=== PATIENT | female | born 1970 | race Caucasian/White ===

== ENCOUNTER 2019-01-04 08:11 | Inpatient (IN) | payer MEDICARE, OTHER ==
[2019-01-04] MEDS ORDERED: LIDOCAINE HCL 2% PF 100MG/5ML VIAL IJ ONE (08:48)
[2019-01-04] MEDS ORDERED: LACTATED RINGERS 1,000 ML IV.SOLN IV ONE ×2 (08:48)
[2019-01-04] MEDS ORDERED: LIDOCAINE HCL 1% PF 300MG/30ML VIAL ONE (08:48)
[2019-01-04] MEDS ORDERED: SODIUM CHLORIDE IRRIG SOLUTION 3,000 ML IRRIG.SOLN IR ONE (08:48)
[2019-01-04] MEDS ORDERED: GLYCOPYRROLATE 0.2 MG/1 ML 1 ML ONE (08:48)
[2019-01-04] MEDS ORDERED: ONDANSETRON HCL/PF 4 MG/ 2ML VIAL ONE (08:48)
[2019-01-04] MEDS ORDERED: ceFAZolin SODIUM 1 GM VIAL ONE (08:48)
[2019-01-04] MEDS ORDERED: ROCURONIUM BROMIDE 10 MG/ML 5ML VIAL ONE (08:48)
[2019-01-04] MEDS ORDERED: BUPIV. HCL 0.25% (2.5MG/ML)/EPI. (1:200,000) PF 10 ML VIAL IM ONE (08:48)
[2019-01-04] MEDS ORDERED: ESMOLOL HCL 100 MG/10 ML IV ONE (08:48)
[2019-01-04] MEDS ORDERED: MIDAZOLAM HCL 2 MG/2 ML VIAL ONE (08:48)
[2019-01-04] MEDS ORDERED: SUGAMMADEX SODIUM 200 MG/2 ML VIAL IV ONE (08:48)
[2019-01-04] MEDS ORDERED: PROPOFOL 200 MG/20 ML VIAL IV ONE (08:48)
[2019-01-04] MEDS ORDERED: SCOPOLAMINE HYDROBROMIDE 1.5MG/72HR PATCH TD ONE (08:48)
[2019-01-04] MEDS ORDERED: DEXAMETHASONE SODIUM PHOSPHATE 10 MG/ML VIAL ONE (08:48)
[2019-01-04] MEDS ORDERED: FAMOTIDINE 20 MG/2 ML VIAL IV ONE (08:48)
[2019-01-04] MEDS ORDERED: LORazepam 2 MG/ML VIAL ONE (10:09)
[2019-01-04] MEDS ORDERED: fentaNYL CITRATE/PF 100 MCG/2 ML INJ. ONE (12:37)
[2019-01-04] MEDS ORDERED: IPRATROPIUM/ALBUTEROL SULFATE 3 ML AMPUL.NEB NEB PRN (13:12)
[2019-01-04 13:34] VITALS: BMI 57.7
--- NOTE | 2019-01-04 13:42 | History and Physical Report ---
History of Present Illnes - History of Present Illness Reason for Visit: S/P LAPAROSCOPIC VERTICAL SLEEVE GASTRECTOMY History of Present Illness: Patient is a 48-year-old female who has tried multiple diets and exercise programs with no success. She has always struggled with her weight > 30 years. Patient and surgeon decided to proceed with gastric sleeve procedure. Procedure went well-Patient has been on a liquid diet prior to surgery so she is a risk of dehydration s/p surgery. She will be admitted for IV hydration to help hydrate patient until he is able to tolerate a sufficient oral intake, will treat pain with IV medication until patient is able to tolerate oral meds, IV antiemetics to help reduce episodes of nausea and/or vomiting. Patient will be monitored closely using telemetry s/p surgery d/t HEATHER. Will encourage incentive spirometer for morbid obesity and HEATHER. Will also monitor blood sugars closely due to low caloric intake. Patient also has a blood clotting disorder in which she has been on warfarin; she has been transitioned to Lovenox 100 mg per her PCP and will co ntinue after surgery. Patient appears very uncomfortable s/p surgery. - Past Medical History Cardiac: HTN, Hyperlipidemia Pulmonary: Asthma, Pulmonary embolus, Sleep Apnea (ORAL APPLIANCE) Heme/Onc: Other (Prothrombin mutation, Protein deficiency) Psych: Anxiety, Depression Musculoskeletal: Chronic low back pain, Osteoarthritis Rheumatologic: Fibromyalgia Endocrine: Diabetes, Hypothyroidism, obesity Grav: 0 Para: 0 - Past Surgical History Past Surgical History: Cholecystectomy (1997), Other (D&C 2007) - Past Family History Mother Family History: Hypertension Father Family History: Hypertension - Past Social History Smoke: No Alcohol: Rare (1-2/month) Drugs: None Lives: With Family Domestic Violence: Negative - Health Maintenance Health Maintenance: Cholesterol, Mammogram Influenza Vaccine: No Pneumonia Vaccine: No Resuscitation Status: Resusciation Status Resuscitation Status Full Code Review of Systems - Review of Systems Constitutional: Weakness Eyes: negative: conjunctivae inflammation, eyelid inflammation ENT: negative: Throat Pain Respiratory: SOB with Excertion Cardiovascular: negative: Chest Pain Gastrointestinal: Nausea, Abdominal Pain. negative: Vomiting Genitourinary: negative: Dysuria Musculoskeletal: Back Pain (chronic) Skin: Rash (skin irritation under pannus) Neurological: Weakness - Medications/Allergies Allergies/Adverse Reactions: Allergies Allergy/AdvReac Type Severity Reaction Status Date / Time codeine Allergy Verified 01/04/19 13:02 Sulfa (Sulfonamide Allergy Verified 01/04/19 13:02 Antibiotics) Home Medications: Home Medications Enoxaparin Sodium [Lovenox] 150 mg SQ BID 01/04/19 Gabapentin [Neurontin] 1,200 mg PO HS 01/04/19 Gabapentin [Neurontin] 600 mg PO BID 01/04/19 Levothyroxine Sodium [Synthroid] 75 mcg PO 0700 01/04/19 Lisinopril [Prinivil] 10 mg PO QD 01/04/19 Lovastatin 20 mg PO DAILY 01/04/19 Metformin HCl 1,000 mg PO BID 01/04/19 Morphine Sulfate/Naltrexone [Embeda ER 80-3.2 mg Capsule] 1 each PO BID 01/04/19 Multivit-Min/Iron/Folic/Lutein [Multivitamin Women 50 Plus Tab] 1 tab PO DAILY 01/04/19 Omeprazole 20 mg PO DAILY 01/04/19 Oxybutynin Chloride [Ditropan] 10 mg PO DAILY 01/04/19 Promethazine HCl [Phenergan] 25 mg PO Q6 PRN 01/04/19 Tizanidine HCl 4 mg PO DAILY 01/04/19 Venlafaxine HCl [Effexor] 150 mg PO DAILY 01/04/19 Warfarin Sodium 0.5 mg PO [id number] 01/04/19 Warfarin Sodium 10 mg PO [id number] 01/04/19 Warfarin Sodium 10 mg PO [id number] 01/04/19 Warfarin Sodium 12 mg PO [id number] 01/04/19 Current Inpatient Medications: Current Inpatient Medications Acetaminophen (Ofirmev) 1,000 mg IV Q6H PRN PRN Reason: For Mild Breakthrough Pain Stop: 01/08/19 13:11 Hydrocodone Bitart/Acetaminophen (Hycet 7.5-325mg/15 Ml Ud Cup) 15 ml PO Q4 PRN PRN Reason: Mild Pain (Score 1-4) Stop: 01/08/19 13:11 Albuterol/Ipratropium (Duoneb) 3 ml NEB Q4 PRN PRN Reason: Wheezing Stop: 02/03/19 13:11 Enoxaparin Sodium (Lovenox) 100 mg SQ DAILY [facility] Stop: 01/19/19 12:59 Famotidine (Pepcid) 20 mg IVP BID [facility] Stop: 01/08/19 20:59 Cefazolin Sodium 1 gm/ Sodium (Chloride) 50 mls @ 100 mls/hr IV Q8H [facility] Stop: 01/05/19 02:59 Sodium Chloride (Normal Saline) 1,000 mls @ 150 mls/hr IV Q8H [facility] Stop: 02/03/19 13:14 Promethazine HCl 25 mg/ Sodium (Chloride) 51 mls @ 200 mls/hr IV Q6 PRN PRN Reason: Nausea / Vomiting Stop: 01/08/19 13:11 Miscellaneous (Chem Sticks) 1 each ACHS [facility] Stop: 02/03/19 16:59 Morphine Sulfate () 2 mg IV Q2H PRN PRN Reason: SEVERE PAIN 8-10 Stop: 01/05/19 13:11 Ondansetron HCl (Zofran) 4 mg IVP Q6H PRN PRN Reason: Nausea / Vomiting Stop: 01/08/19 13:11 Exam - Exam Vital Signs: Vital Signs (72 hours) 01/04/19 01/04/19 13:02 13:18 Temperature 97.6 F Pulse Rate [ 106 H Left Pulse ox] Respiratory 18 Rate Blood Pressure 122/63 [Left Arm] O2 Sat by Pulse 95 95 Oximetry General: Alert, Oriented to Person, Oriented to Place, Cooperative (still drowsy from anesthesia), Morbidly Obese HEENT: Atraumatic, PERRLA, Mouth Mucous membr. moist/[place] Neck: Normal Range of Motion Carotids: no bruit Lungs: Clear to auscultation, Normal air movement Cardiovascular: Regular rate, Normal S1, Normal S2, Murmur Heart Murmur Grade: III Peripheral Edema: None Peripheral Pulses: 2+ Abdomen: Soft, Decreased Bowel Sounds Integumentary: Warm, Dry, Pale, Other (Incisions intact x 5 without redness/erythema/drainage: Skin adhesive intact) Extremities: No edema, Normal pulses, No tenderness/swelling Neurological: Normal speech, Strength Equal Bilat, Generalized Weakness, Other (uses walker) Psych/Mental Status: Mental status NL - Laboratory Results Laboratory Results: Laboratory Results 01/04/19 10:00 PT 13.7 H INR 1.32 H APTT 37.2 Assessment/Plan - Assessment/Plan (1) S/P laparoscopic sleeve gastrectomy Status: Acute Current Visit: Yes Plan: Plan to admit for IV hydration, IV pain meds, and IV antiemetics. Lovenox and SCDs to help prevent DVTs, IS and frequent ambulation will be implemented. Start ice chips and advance diet as tolerated. IV pepcid BID (2) Morbid obesity due to excess calories Status: Acute Current Visit: Yes Plan: Patient is s/p gastric sleeve. We will assist patient with implementing gastric sleeve diet protocol starting with ice chips and clear liquids and advancing as tolerated (3) Type 2 diabetes mellitus Status: Acute Current Visit: Yes Qualifiers: Diabetes mellitus jail insulin use: without terminal system operator use Diabetes mellitus complication status: with hyperglycemia Qualified Code(s): E11.65 - Type 2 diabetes mellitus with hyperglycemia Plan: Will monitor blood sugars ac & hs; may implement SSI if needed (4) Hypertension Status: Acute Current Visit: Yes Qualifiers: Hypertension type: essential hypertension Qualified Code(s): I10 - Essential (primary) hypertension Plan: Will monitor blood pressure every 4 hours and prn; may implement blood pressure medications as needed (5) Prothrombin mutation Status: Acute Current Visit: Yes Plan: Patient has transitioned from warfarin to lovenox; she was instructed and has started lovenox as directed by PCP on 12/30/18 and will continue with Lovenox 150 mg bid (6) Obstructive sleep apnea Status: Acute Current Visit: Yes Plan: Patient is to use sleep appliance while hospitalized; incentive spirometer every hour while awake (7) Asthma Status: Acute Current Visit: Yes Plan: Duonebs ordered prn (8) History of pulmonary embolus (PE) Status: Acute Current Visit: Yes Plan: Will continue on Lovenox 150 mg bid while hospitalized per PCP order (9) Nausea and vomiting Status: Acute Current Visit: Yes Plan: Pepcid IV BID ordered; IV antiemetics, and IVF VTE Assessment - RISK FACTOR SCORE VTE RISK FACTOR SCORES: AGE 40-60 YEARS, OBESITY, MAJOR SURGERY/ANESTHESIA TIME > 1 HOUR, DOCUMENTED HX OF VTE, HYPERCOAGULABLE SYNDROME - RISK VTE VERY HIGH RISK: SCORE OF 5+ (RISK PROXIMAL DVT 10-20%+) PROPHYLAXIS NEEDED (Lovenox 150 mg bid, SCDs while in bed, frequent ambulation, Incentive spirometer)
[2019-01-04] MEDS: ACETAMINOPHEN 1,000 MG/100 ML INJ IV PRN ×2 (14:15→19:38)
[2019-01-04] MEDS: ONDANSETRON HCL/PF 4 MG/ 2ML VIAL IVP PRN ×2 (14:16→19:35)
[2019-01-04] MEDS: 0.9 % SODIUM CHLORIDE 1,000 ML IV SCH ×2 (14:24→21:15)
[2019-01-04] MEDS: PROMETHAZINE HCL 25 MG in 0.9 % SODIUM CHLORIDE 50 ML IV PRN ×2 (15:25→23:16)
[2019-01-04] MEDS: ceFAZolin SODIUM 1 GM in 0.9 % SODIUM CHLORIDE 50 ML IV SCH (18:43)
[2019-01-04] MEDS: MORPHINE SULFATE 2 MG/ML VIAL IV PRN ×2 (18:45→21:12)
[2019-01-04] MEDS: FAMOTIDINE 20 MG/2 ML VIAL IVP SCH (20:22)
[2019-01-04] MEDS: HYDROcodone-ACETAMIN 7.5-325/15ML SOLN UD CUP PO PRN (22:25)
[2019-01-05] MEDS: MORPHINE SULFATE 2 MG/ML VIAL IV PRN ×4 (00:05→10:21)
[2019-01-05] MEDS: ceFAZolin SODIUM 1 GM in 0.9 % SODIUM CHLORIDE 50 ML IV SCH (01:57)
[2019-01-05] MEDS ORDERED: METOPROLOL TARTRATE 50 MG TABLET PO ONE (02:13)
[2019-01-05] MEDS: HYDROcodone-ACETAMIN 7.5-325/15ML SOLN UD CUP PO PRN ×5 (02:41→22:02)
[2019-01-05] MEDS ORDERED: 0.9 % SODIUM CHLORIDE 500 ML IV ONE (04:20)
[2019-01-05] MEDS: 0.9 % SODIUM CHLORIDE 1,000 ML IV SCH ×3 (05:37→21:54)
--- NOTE | 2019-01-05 06:35 | Inpatient Progress Note ---
Subjective - Required Recertification Statement I anticipate X number of days because-include discharge plan: Unknown - Review of Systems Events since last encounter: Per RN "At approximately 0400 NORA Peace was helping the patient to the restroom and had her on the toilet when she yelled this nurses name to come to the room. Upon entering the room this nurse noted that the patient was on the toilet and breathing but was unresponsive to stimuli. Isidra FISHER entered the room and this nurse told her to call the ED for Santos FISHER and Urszula FRAZIER. This nurse went to grab oxygen tubing and when walking back to the room the ED staff was also coming down the hallway. The staff was able to get the patient to become alert and transferred back to her bed. Urszula FRAZIER ordered labs, EKG, and a fluid bolus to be completed, orders were carried out. Vitals were completed and as follows T98.5, HR 108, R 20, BP 105/71, and O2 sat 97% on 3L. NORA Peace helped patient with jacky care due to patient being incontinent. Patient is currently resting in bed call light within reach, denies dizziness at this time". 06:00- patient was treated with a 500 cc bolus of NS; Hgb down from 12.1 pre surgery to 8.3; we will set up to transfuse blood; discussed with patient; she is in agreement. Patient was aware of risk with Lovenox therapy. She is resting comfortably; VSS; Blood sugar this morning is 339- will implement SSI. She states that she is feeling much better. Will continue with SCDs while in bed d/t risk of blood clots. She will be encouraged to use incentive spirometer. 06:[address] Frausto (Surgeon) and we will hold lovenox today; give 1 unit of PRBCs and check Hgb every 8 hours. Patient is too walk and SCDs will remain on while in bed or chair General: Fatigue HEENT: Denies: Head Aches Pulmonary: Dyspnea (with syncopal episode) Cardiovascular: Light Headedness Gastrointestinal: Nausea, Abdominal Pain. Denies: Vomiting Genitourinary: Denies: Dysuria Musculoskeletal: Back Pain Neurological: Weakness Objective - Exam Vitals and I&O: Vital Signs Temp 96.8 F L 01/05/19 05:53 Pulse 111 H 11/08/19 05:53 Resp 20 01/05/19 05:54 BP 132/71 01/05/19 05:53 Pulse Ox 100 01/05/19 05:54 Intake & Output 01/04/19 01/04/19 01/05/19 11:59 23:59 11:59 Intake Total 120 240 Output Total 1200 Balance -1080 240 Weight 167.285 kg Intake: Oral 120 240 Output: Urine 1200 Other: Voiding Method Toilet Toilet # Voids 0 1 # Bowel Movements 0 General: Alert, Oriented to Person, Oriented to Place, Cooperative, Other (Had a syncopal episode where she was pale, diaphoretic, tachypnea), Morbidly Obese HEENT: PERRLA, Mouth Mucous membr. moist/[place], Nose Mucous membr. moist/[place] Neck: No JVD, +2 carotid pulse wo bruit Lungs: Clear to auscultation, Normal air movement Cardiovascular: Normal S1, Normal S2, Tachycardia Abdomen: Soft, Decreased Bowel Sounds Extremities: Normal pulses, No tenderness/swelling Skin: Pale (Cool, [place]) Neurological: Normal speech, Strength Equal Bilat, Generalized Weakness Psych/Mental Status: Mental status NL, Mood NL - Results Results: Laboratory Results PT 13.7 Seconds (8.8-11.9) H 01/04/19 10:00 INR 1.32 (0.80-1.10) H 01/04/19 10:00 APTT 37.2 Seconds (24.7-37.8) 01/04/19 10:00 Assessment/Plan - Assessment/Plan (1) S/P laparoscopic sleeve gastrectomy Status: Acute Current Visit: Yes Assessment: Patient experiencing nausea; has been ambulating, wearing SCDs while in bed, using incentive spirometry, patient receiving lovenox to prevent DVT Plan: Patient getting IV fluids for hydration, IV pain meds, and IV antiemetics. Lovenox and SCDs to help prevent DVTs, IS and frequent ambulation will be implemented. Patient eating ice chips and will advance diet to clear liquids as tolerated once nausea and vomiting is controlled. Will continue with Pepcid IV BID for GI upset (2) Morbid obesity due to excess calories Status: Acute Current Visit: Yes Assessment: Patient tolerating ice chips and water; some nausea Plan: Will advance diet to clear liquids today (3) Type 2 diabetes mellitus Status: Acute Current Visit: Yes Qualifiers: Diabetes mellitus long term care administrator insulin use: without jail use Diabetes mellitus complication status: with hyperglycemia Qualified Code(s): E11.65 - Type 2 diabetes mellitus with hyperglycemia Assessment: Blood sugar this morning 334 Plan: Will implement sliding scale insulin (4) Hypertension Status: Acute Current Visit: Yes Qualifiers: Hypertension type: essential hypertension Qualified Code(s): I10 - Essential (primary) hypertension Assessment: Blood pressures <110 systolic Plan: Will hold blood pressure meds due to hypotension (5) Prothrombin mutation Status: Acute Current Visit: Yes Assessment: Potential GI Bleed- syncopal episode around 4 a.m. Plan: Will give PRBCs this morning (6) Obstructive sleep apnea Status: Acute Current Visit: Yes Assessment: Stable Plan: Continue to use airway device (7) Asthma Status: Acute Current Visit: Yes Assessment: No resp. distress; LCTA Plan: Will continue with same plan of care (8) History of pulmonary embolus (PE) Status: Acute Current Visit: Yes Assessment: Hgb down from 12.1 to 8.8 Plan: Will hold lovenox today per Dr. Frausto and give blood (9) Nausea and vomiting Status: Acute Current Visit: Yes Assessment: Patient having nausea; able to sip on fluids Plan: Will continue with Zofran and phenergan
[2019-01-05 06:49] LABS: BASOPHILS % 0.6 % (0.0-1.5); NEUTROPHILS # 18.7 # k/uL (1.4-7.7); eGFR (Non-African) > 60
[2019-01-05] MEDS: INSULIN REGULAR, HUMAN 100 UNIT/ML 10ML VIAL SQ SCH ×4 (07:42→22:01)
[2019-01-05] MEDS: FAMOTIDINE 20 MG/2 ML VIAL IVP SCH ×2 (08:30→19:58)
[2019-01-05] MEDS ORDERED: ENOXAPARIN SODIUM 80 MG/0.8 ML DISP.SYRIN SQ SCH (09:00)
[2019-01-05] MEDS ORDERED: ENOXAPARIN SODIUM 100 MG/ML DISP.SYRIN SQ SCH (13:00)
[2019-01-05] MEDS ORDERED: ENOXAPARIN SODIUM 40 MG/0.4 ML DISP.SYRIN SQ SCH (13:28)
[2019-01-05] MEDS: ONDANSETRON HCL/PF 4 MG/ 2ML VIAL IVP PRN ×2 (14:52→21:18)
[2019-01-05] MEDS: ACETAMINOPHEN 1,000 MG/100 ML INJ IV PRN (15:45)
[2019-01-05] MEDS: PROMETHAZINE HCL 25 MG in 0.9 % SODIUM CHLORIDE 50 ML IV PRN ×2 (16:09→23:58)
[2019-01-06] MEDS: ACETAMINOPHEN 1,000 MG/100 ML INJ IV PRN (00:21)
[2019-01-06] MEDS: ONDANSETRON HCL/PF 4 MG/ 2ML VIAL IVP PRN ×3 (03:08→19:41)
[2019-01-06] MEDS: HYDROcodone-ACETAMIN 7.5-325/15ML SOLN UD CUP PO PRN ×6 (03:08→23:31)
[2019-01-06] MEDS ORDERED: MORPHINE SULFATE 2 MG/ML VIAL IV ONE (04:04)
--- NOTE | 2019-01-06 07:23 | Inpatient Progress Note ---
Subjective - Required Recertification Statement I anticipate X number of days because-include discharge plan: Unknown - Review of Systems Events since last encounter: Patient received 2 units of blood on 12/05/18 (1 unit in the tube mill operator after syncopal episode), due to drop in hemoglobin; she was feeling much better after 1st unit; was starting to ambulate short distances; would have episodes of tachycardia but would subside with rest. Later yesterday evening patient was f eeling fatigued, tachycardic, shortness of breath with activity; decision made to give 2nd unit. General: Fatigue HEENT: Denies: Dysphasia Pulmonary: Dyspnea Cardiovascular: Light Headedness Gastrointestinal: Nausea, Abdominal Pain (mild). Denies: Vomiting Genitourinary: Incontinence Musculoskeletal: Back Pain Neurological: Weakness Objective - Exam Vitals and I&O: Vital Signs Temp 97.4 F L 01/06/19 06:00 Pulse 117 H 01/06/19 06:00 Resp 18 01/06/19 06:00 BP 137/73 01/06/19 06:00 Pulse Ox 99 01/06/19 06:00 Intake & Output 01/05/19 01/05/19 01/06/19 11:59 23:59 11:59 Intake Total 303 220 Output Total 0 400 Balance 303 -180 Intake: IV 3 Left AC 3 Oral 300 220 Output: Urine 0 400 Other: Voiding Method Toilet Toilet Toilet # Voids 1 1 2 General: Alert, Oriented to Person, Oriented to Place, Oriented to Time, Cooperative, Mild distress HEENT: Atraumatic, PERRLA Neck: Supple Lungs: Clear to auscultation, Normal air movement Cardiovascular: Tachycardia Abdomen: Normal bowel sounds, Soft Extremities: No edema, Normal pulses, No tenderness/swelling Skin: Warm, Dry, Pale, Other (incisions without redness/erythema/drainage; skin adhesive intact) Neurological: Normal speech, Strength Equal Bilat, Normal tone, Sensation intact Psych/Mental Status: Mental status NL, Mood NL, Appropriate Affect, Intact Judgment - Results Results: Laboratory Results WBC 17.00 K/ul (4.00-12.00) H 01/05/19 14:00 RBC 3.45 M/ul (3.90-5.20) L 01/05/19 14:00 Hgb 9.2 g/dL (11.5-16.0) L 01/05/19 14:00 Hct 28.4 % (34.5-46.5) L 01/05/19 14:00 MCV 82.0 fl (80.0-100.0) 01/05/19 14:00 MCH 26.7 pg (28.0-34.0) L 01/05/19 14:00 MCHC 32.5 g/dL (30.0-36.0) 01/05/19 14:00 RDW 16.3 % (11.3-14.3) H 01/05/19 14:00 Plt Count 198 K/mm3 (130-400) 01/05/19 14:00 Neut % (Auto) 83.0 % (39.0-79.0) H 01/05/19 04:19 Lymph % (Auto) 10.0 % (16.0-50.0) L 01/05/19 04:19 [place] % (Auto) 5.2 % (0.0-11.0) 01/05/19 04:19 Eos % (Auto) 1.2 % (0.0-6.8) 01/05/19 04:19 Baso % (Auto) 0.6 % (0.0-1.5) 01/05/19 04:19 Neut # (Auto) 18.7 # k/uL (1.4-7.7) H 01/05/19 04:19 Lymph # (Auto) 2.3 # k/uL (0.6-4.0) 01/05/19 04:19 [place] # (Auto) 1.2 # k/uL (0.0-0.9) H 01/05/19 04:19 Eos # (Auto) 0.3 # k/uL (0.0-0.6) 01/05/19 04:19 Baso # (Auto) 0.1 # k/uL (0.0-0.5) 01/05/19 04:19 PT 13.7 Seconds (8.8-11.9) H 01/04/19 10:00 INR 1.32 (0.80-1.10) H 01/04/19 10:00 APTT 37.2 Seconds (24.7-37.8) 01/04/19 10:00 Sodium 137 mmol/L (137-145) 01/05/19 04:19 Potassium 3.9 mmol/L (3.5-5.1) 01/05/19 04:19 Chloride 108 mmol/L (98-107) H 01/05/19 04:19 Carbon Dioxide 11 mmol/L (22-30) L 01/05/19 04:19 Anion Gap 21.9 01/05/19 04:19 BUN 11 mg/dL (7-17) 01/05/19 04:19 Creatinine 1.14 mg/dL (0.52-1.04) H 01/05/19 04:19 Estimated Creat Clear 183 01/05/19 04:19 Est GFR ( Amer) > 60 (60-) 01/05/19 04:19 Est GFR (Non-Af Amer) > 60 (60-) 01/05/19 04:19 Glucose 339 mg/dL (74-106) H 01/05/19 04:19 Calcium 7.8 mg/dL (8.4-10.2) L 01/05/19 04:19 Total Bilirubin 0.4 mg/dL (0.2-1.3) 01/05/19 04:19 AST 35 U/L (15-46) 01/05/19 04:19 ALT 40 U/L (0-35) H 01/05/19 04:19 Alkaline Phosphatase 75 U/L (38-126) 01/05/19 04:19 Total Protein 5.9 g/dL (6.3-8.2) L 01/05/19 04:19 Albumin 3.2 g/dL (3.5-5.0) L 01/05/19 04:19 Assessment/Plan - Assessment/Plan (1) S/P laparoscopic sleeve gastrectomy Status: Acute Assessment: Patient experiencing nausea; has been ambulating, wearing SCDs while in bed, using incentive spirometry Plan: Patient getting IV fluids for hydration, IV pain meds, and IV antiemetics. SCDs to help prevent DVTs, IS and frequent ambulation will be implemented. Patient eating ice chips and will advance diet to clear liquids as tolerated once nausea and vomiting is controlled. Will continue with Pepcid IV BID for GI upset (2) Morbid obesity due to excess calories Status: Acute Assessment: Patient tolerating ice chips and water; some nausea Plan: Will advance diet to clear liquids today (3) Type 2 diabetes mellitus Status: Acute Qualifiers: Diabetes mellitus auto self service station attendant insulin use: without auto self service station attendant use Diabetes mellitus complication status: with hyperglycemia Qualified Code(s): E11.65 - Type 2 diabetes mellitus with hyperglycemia Assessment: Blood sugar this morning 200 Plan: Patient on sliding scale (4) Hypertension Status: Acute Qualifiers: Hypertension type: essential hypertension Qualified Code(s): I10 - Essential (primary) hypertension Assessment: Blood pressures >128 systolic Plan: Will hold blood pressure meds due to hypotension (5) Prothrombin mutation Status: Acute Plan: 2 units of PRBCs given (6) Obstructive sleep apnea Status: Acute Assessment: Stable Plan: Continue to use airway device (7) Asthma Status: Acute Assessment: No resp. distress; LCTA Plan: Will continue with same plan of care (8) History of pulmonary embolus (PE) Status: Acute (9) Nausea and vomiting Status: Acute Assessment: Patient having nausea; able to sip on fluids Plan: Will continue with Zofran and phenergan
[2019-01-06] MEDS: INSULIN REGULAR, HUMAN 100 UNIT/ML 10ML VIAL SQ SCH ×4 (07:29→20:55)
[2019-01-06] MEDS: PROMETHAZINE HCL 25 MG in 0.9 % SODIUM CHLORIDE 50 ML IV PRN (07:37)
[2019-01-06] MEDS: FAMOTIDINE 20 MG/2 ML VIAL IVP SCH ×2 (08:13→20:55)
[2019-01-06] MEDS ORDERED: MAG HYDROX/ALUMINUM HYD/SIMETH 30 ML UDC PO ONE (20:55)
[2019-01-06] MEDS: MAG HYDROX/ALUMINUM HYD/SIMETH 30 ML UDC PO PRN (21:02)
[2019-01-07] MEDS: HYDROcodone-ACETAMIN 7.5-325/15ML SOLN UD CUP PO PRN ×5 (03:26→21:45)
[2019-01-07 05:21] LABS: eGFR (Non-African) > 60
[2019-01-07] MEDS: MAG HYDROX/ALUMINUM HYD/SIMETH 30 ML UDC PO PRN ×2 (06:55→21:14)
--- NOTE | 2019-01-07 07:08 | Inpatient Progress Note ---
Subjective - Required Recertification Statement I anticipate X number of days because-include discharge plan: Unknown - Review of Systems Events since last encounter: Patient sitting up in bedside chair; she is alert and oriented; VS have been stable; however hemoglobin this morning is 7.5. Patient states that she is feeling better but still very weak and difficult to ambulate long distances. We will transfuse another unit today General: Fatigue HEENT: Denies: Dysphasia Pulmonary: Denies: Dyspnea Cardiovascular: Light Headedness. Denies: Chest Pain, Edema Gastrointestinal: Nausea. Denies: Vomiting, Abdominal Pain Genitourinary: Denies: Dysuria Musculoskeletal: Back Pain Neurological: Weakness Objective - Exam Vitals and I&O: Vital Signs Temp 97.6 F 01/07/19 06:00 Pulse 108 H 01/07/19 06:00 Resp 18 01/07/19 06:00 BP 121/61 01/07/19 06:00 Pulse Ox 97 01/07/19 06:00 Intake & Output 01/06/19 01/06/19 01/07/19 11:59 23:59 11:59 Intake Total 63 430 360 Output Total 675 Balance 63 430 -315 Intake: IV 3 10 Right Hand 3 10 Oral 60 420 360 Output: Urine 675 Other: Voiding Method Toilet Toilet # Voids 2 1 # Bowel Movements 0 0 General: Alert, Oriented to Person, Oriented to Place, Oriented to Time, Cooperative, Mild distress, Morbidly Obese HEENT: Atraumatic, PERRLA, Mouth Mucous membr. moist/[place], Nose Mucous membr. moist/[place] Neck: Supple, +2 carotid pulse wo bruit Lungs: Clear to auscultation, Normal air movement, Speaks full Sentences Cardiovascular: Regular rate, Normal S1, Normal S2 Abdomen: Normal bowel sounds, Soft Extremities: No edema, No tenderness/swelling Skin: Warm, Dry, Pale, Other (incisions without redness; erythema; drainage) - Results Results: Laboratory Results WBC 12.90 K/ul (4.00-12.00) H 01/06/19 18:00 RBC 2.97 M/ul (3.90-5.20) L 01/06/19 18:00 Hgb 7.5 g/dL (11.5-16.0) L 01/07/19 05:00 Hct 23.0 % (34.5-46.5) L 01/07/19 05:00 MCV 82.0 fl (80.0-100.0) 01/06/19 18:00 MCH 26.8 pg (28.0-34.0) L 01/06/19 18:00 MCHC 32.6 g/dL (30.0-36.0) 01/06/19 18:00 RDW 16.1 % (11.3-14.3) H 01/06/19 18:00 Plt Count 355 K/mm3 (130-400) 01/06/19 18:00 Neut % (Auto) 83.0 % (39.0-79.0) H 01/05/19 04:19 Lymph % (Auto) 10.0 % (16.0-50.0) L 01/05/19 04:19 [place] % (Auto) 5.2 % (0.0-11.0) 01/05/19 04:19 Eos % (Auto) 1.2 % (0.0-6.8) 01/05/19 04:19 Baso % (Auto) 0.6 % (0.0-1.5) 01/05/19 04:19 Neut # (Auto) 18.7 # k/uL (1.4-7.7) H 01/05/19 04:19 Lymph # (Auto) 2.3 # k/uL (0.6-4.0) 01/05/19 04:19 [place] # (Auto) 1.2 # k/uL (0.0-0.9) H 01/05/19 04:19 Eos # (Auto) 0.3 # k/uL (0.0-0.6) 01/05/19 04:19 Baso # (Auto) 0.1 # k/uL (0.0-0.5) 01/05/19 04:19 PT 13.7 Seconds (8.8-11.9) H 01/04/19 10:00 INR 1.32 (0.80-1.10) H 01/04/19 10:00 APTT 37.2 Seconds (24.7-37.8) 01/04/19 10:00 Sodium 135 mmol/L (137-145) L 01/07/19 05:00 Potassium 3.5 mmol/L (3.5-5.1) 01/07/19 05:00 Chloride 103 mmol/L (98-107) 01/07/19 05:00 Carbon Dioxide 23 mmol/L (22-30) 01/07/19 05:00 Anion Gap 12.5 01/07/19 05:00 BUN 8 mg/dL (7-17) 01/07/19 05:00 Creatinine 0.52 mg/dL (0.52-1.04) 01/07/19 05:00 Estimated Creat Clear 402 01/07/19 05:00 Est GFR ( Amer) > 60 (60-) 01/07/19 05:00 Est GFR (Non-Af Amer) > 60 (60-) 01/07/19 05:00 Glucose 187 mg/dL (74-106) H 01/07/19 05:00 Calcium 8.3 mg/dL (8.4-10.2) L 01/07/19 05:00 Total Bilirubin 1.0 mg/dL (0.2-1.3) 01/07/19 05:00 AST 32 U/L (15-46) 01/07/19 05:00 ALT 26 U/L (0-35) 01/07/19 05:00 Alkaline Phosphatase 114 U/L (38-126) 01/07/19 05:00 Total Protein 6.3 g/dL (6.3-8.2) 01/07/19 05:00 Albumin 3.1 g/dL (3.5-5.0) L 01/07/19 05:00 Assessment/Plan - Assessment/Plan (1) S/P laparoscopic sleeve gastrectomy Status: Acute Assessment: Patient experiencing nausea; has been ambulating, wearing SCDs while in bed, using incentive spirometry Plan: Patient getting IV fluids for hydration, IV pain meds, and IV antiemetics. SCDs to help prevent DVTs, IS and frequent ambulation will be implemented. Patient eating ice chips and will advance diet to clear liquids as tolerated once nausea and vomiting is controlled. Will continue with Pepcid IV BID for GI upset (2) Morbid obesity due to excess calories Status: Acute Assessment: Patient drinking full liquids Plan: Will continue with full liquids (3) Type 2 diabetes mellitus Status: Acute Qualifiers: Diabetes mellitus custodial insulin use: without custodial use Diabetes mellitus complication status: with hyperglycemia Qualified Code(s): E11.65 - Type 2 diabetes mellitus with hyperglycemia Assessment: Blood sugars within normal limits Plan: Will continue to monitor (4) Hypertension Status: Acute Qualifiers: Hypertension type: essential hypertension Qualified Code(s): I10 - Essential (primary) hypertension Assessment: Blood pressures are stable Plan: Will continue to monitor (5) Prothrombin mutation Status: Acute (6) Obstructive sleep apnea Status: Acute Assessment: stable (7) Asthma Status: Acute (8) History of pulmonary embolus (PE) Status: Acute (9) Nausea and vomiting Status: Acute Assessment: STable
[2019-01-07] MEDS: INSULIN REGULAR, HUMAN 100 UNIT/ML 10ML VIAL SQ SCH ×4 (07:34→21:12)
[2019-01-07] MEDS ORDERED: 0.9 % SODIUM CHLORIDE 500 ML IV ONE ×2 (08:42→15:01)
[2019-01-07] MEDS: FAMOTIDINE 20 MG/2 ML VIAL IVP SCH ×2 (12:11→21:14)
[2019-01-07] MEDS: ONDANSETRON HCL/PF 4 MG/ 2ML VIAL IVP PRN (20:12)
[2019-01-07] MEDS: ACETAMINOPHEN 1,000 MG/100 ML INJ IV PRN (20:16)
[2019-01-08] MEDS: HYDROcodone-ACETAMIN 7.5-325/15ML SOLN UD CUP PO PRN ×2 (05:43→11:39)
[2019-01-08] MEDS: ACETAMINOPHEN 1,000 MG/100 ML INJ IV PRN (05:44)
[2019-01-08 06:55] LABS: OCCULT BLOOD,URINE 2+ (NEGATIVE); PH URINE 5.5 (5.0 - 8.0); UROBILINOGEN URINE 0.2 Eu (0.2-1.0)
--- NOTE | 2019-01-08 07:11 | Discharge Summary ---
Discharge Summary - Discharge [facility] Admission Date: 01/04/19 Discharge Date: 01/08/19 Discharge To: Home History of Present Illness: Patient is a 48-year-old female who has tried multiple diets and exercise programs with no success. She has always struggled with her weight > 30 years. Patient and surgeon decided to proceed with gastric sleeve procedure. Procedure went well-Patient has been on a liquid diet prior to surgery so she is a risk of dehydration s/p surgery. She will be admitted for IV hydration to help hydrate patient until he is able to tolerate a sufficient oral intake, will treat pain with IV medication until patient is able to tolerate oral meds, IV antiemetics to help reduce episodes of nausea and/or vomiting. Patient will be monitored closely using telemetry s/p surgery d/t HEATHER. Will encourage incentive spirometer for morbid obesity and HEATHER. Will also monitor blood sugars closely due to low caloric intake. Patient also has a blood clotting disorder in which she has been on warfarin; she has been transitioned to Lovenox 100 mg per her PCP and will continue after surgery. Patient appears very uncomfortable s/p surgery. Condition at Discharge: Stable Home Medications: Ambulatory Orders Medication Instructions Recorded Enoxaparin Sodium [Lovenox] 150 mg SQ BID 01/04/19 Gabapentin [Neurontin] 1,200 mg PO HS 01/04/19 Gabapentin [Neurontin] 600 mg PO BID 01/04/19 Levothyroxine Sodium [Synthroid] 75 mcg PO 0700 01/04/19 Lisinopril [Prinivil] 10 mg PO QD 01/04/19 Lovastatin 20 mg PO DAILY 01/04/19 Metformin HCl 1,000 mg PO BID 01/04/19 Morphine Sulfate/Naltrexone 1 each PO BID 01/04/19 [Embeda ER 80-3.2 mg Capsule] Multivit-Min/Iron/Folic/Lutein 1 tab PO DAILY 01/04/19 [Multivitamin Women 50 Plus Tab] Omeprazole 20 mg PO DAILY 01/04/19 Oxybutynin Chloride [Ditropan] 10 mg PO DAILY 01/04/19 Promethazine HCl [Phenergan] 25 mg PO Q6 PRN 01/04/19 Tizanidine HCl 4 mg PO DAILY 01/04/19 Venlafaxine HCl [Effexor] 150 mg PO DAILY 11/07/19 Warfarin Sodium 0.5 mg PO [id number] 01/04/19 Warfarin Sodium 10 mg PO [id number] 01/04/19 Warfarin Sodium 10 mg PO [id number] 01/04/19 Warfarin Sodium 12 mg PO [id number] 01/04/19 Consultations this Visit: None Procedures this Visit: Other (S/P LSG) Allergies/Adverse Reactions: Allergies Allergy/AdvReac Type Severity Reaction Status Date / Time codeine Allergy Verified 01/04/19 13:02 Sulfa (Sulfonamide Allergy Verified 01/04/19 13:02 Antibiotics) Discharge Summary: 48 year old female s/p laparoscopic vertical sleeve gastrectomy has some issues with anemia s/p surgery; patient was transitioned from warfarin to Lovenox by PCP prior to surgery. Patient received 2 units of PRBCs during admission. She is feeling much better and feels ready to go home.. She is tolerating sufficient oral intake; she is ambulating with the use of walker; has been using incentive spirometer; pain is controlled; no vomiting; she has support at home with her mom. She has a follow up appt. in 2 days with YAYA for follow up. - Final Diagnosis (1) S/P laparoscopic sleeve gastrectomy Problems: Continue with bariatric sleeve diet- continue on full liquids; protein shake 80- 100 grams protein Right or Left: Right (2) Morbid obesity due to excess calories Problems: Incision without redness or drainage, positive bowel sounds, minimal discomfort, belching and flatus, no extremity pain or edema, LCTA Right or Left: Right (3) Type 2 diabetes mellitus Problems: Continue with home medications; monitor blood sugars closely; keep log and take to follow up appointment Right or Left: Right (4) Hypertension Problems: Stable- continue on home meds; monitor blood pressures; keep log and take to follow up appointment Right or Left: Right (5) Prothrombin mutation Problems: Continue on Lovenox as instructed by PCP Right or Left: Right (6) Obstructive sleep apnea Problems: Stable Right or Left: Right (7) Asthma Problems: Stable; LCTA Right or Left: Right (8) History of pulmonary embolus (PE) Problems: Continue on Lovenox as directed by PCP Right or Left: Right (9) Nausea and vomiting Problems: Stable; script for phenergan sent with patient Right or Left: Right
[2019-01-08] MEDS ORDERED: FAMOTIDINE 20 MG/2 ML VIAL IV ONE (07:50)
[2019-01-08] MEDS: INSULIN REGULAR, HUMAN 100 UNIT/ML 10ML VIAL SQ SCH ×2 (08:00→11:37)
[2019-01-08] MEDS: FAMOTIDINE 20 MG/2 ML VIAL IVP SCH (08:03)
[2019-01-08] MEDS ORDERED: MORPHINE SULFATE 2 MG/ML VIAL ONE (09:27)
[2019-01-08 09:28] VITALS: BP 156/82
[2019-01-08] MEDS ORDERED: MORPHINE SULFATE 2 MG/ML VIAL IV ONE (09:28)
--- NOTE | 2019-01-09 15:27 | Operative Note ---
PROCEDURE DATE: 01/04/2019 PREOPERATIVE DIAGNOSIS: 1. Morbid obesity. 2. Hypertension. 3. Obstructive sleep apnea. 4. Type 2 diabetes. POSTOPERATIVE DIAGNOSIS: 1. Morbid obesity. 2. Hypertension. 3. Obstructive sleep apnea. 4. Type 2 diabetes. PROCEDURES PERFORMED: 1. Laparoscopic vertical sleeve gastrectomy. 2. Upper gastrointestinal endoscopy. SURGEON: Kennedy Frausto M.D. INDICATIONS FOR PROCEDURE: Ms. Jovel is a 48-year-old female who presented with features of morbid obesity. She was noted to have a weight of 381 pounds with a BMI of 61.3 with the above-listed comorbidities. The patient was advised laparoscopic vertical sleeve gastrectomy and possible hiatal hernia repair. The patient showed understanding and agreed to proceed. DESCRIPTION OF PROCEDURE: After explaining to the patient in detail and informed consent was obtained, the patient was identified in the preoperative holding area. The patient was transferred to the operating room and was placed in supine position. Sequential compressive devices were placed for DVT prophylaxis. Preoperative antibiotics were given. After induction of anesthesia, the abdomen was prepped and draped in a sterile fashion. Through a left upper quadrant 1-cm incision, and using Optiview technique, the peritoneal cavity was entered and pneumoperitoneum was created. Thereafter, under direct vision, another 5-mm trocar was placed in the left midabdomen and another 15-mm trocar was placed in the right midabdomen. Through a 1-cm incision in the right subcostal region, another 5-mm trocar was placed. Through a 1-cm incision in the epigastrium, a Shannan retractor was introduced and the left lobe of the liver was retracted. On initial inspection, the patient was noted to have no evidence of hiatal hernia. I took down the gastroepiploic vessels using a LigaSure. This was continued superiorly. The short gastric vessels were taken down. The gastrophrenic ligament was divided and the Angle of His was mobilized. The posterior attachments of the stomach on the pancreas were released. Distally, the gastroepiploic vessels were taken down up to about 4 cm proximal to the pylorus. At this point, a #38 Arabic Hurst Bougie was introduced into the stomach and was placed along the lesser curve. The stomach was then divided in a vertical fashion with multiple Endo ETTA Covidien Black Load Staplers. The first firing was directed outwards towards the greater curvature. Subsequent firings were directed towards the Angle of His to create a loose sleeve around the #38 Arabic bougie. The bougie was then removed and an upper GI endoscopy was performed at this point. The scope was introduced into the esophagus and was gradually advanced into the stomach. The GE junction appeared normal. The sleeve size appeared normal. No evidence of any active bleeding was noted. The stomach was insufflated with air and irrigation of fluid along the staple line revealed no evidence of air leak. The stomach was then suctioned out and the scope was removed. Absolute hemostasis was ensured. Thorough saline irrigation was given. The Shannan retractor was removed. Approximately 10 mL of a lidocaine- Marcaine mix was instilled under the left hemidiaphragm. The sleeve gastrectomy specimen was removed. The abdomen was then deflated. The incisions were closed with 4-0 Monocryl. Dermabond was applied. Approximately 10 mL of a lidocaine- Marcaine mix was injected into all the incisions. The patient was awakened from anesthesia and was transferred to the recovery room in stable condition. The patient had minimal oozing from the staple line, for which two endoclips were placed on the staple line. ESTIMATED BLOOD LOSS: Approximately 20 mL. CONDITION OF THE PATIENT: Stable. FLUIDS GIVEN: Per Anesthesia note. SPECIMEN(S) SENT: Sleeve gastrectomy specimen. COMPLICATIONS: None. ANESTHESIA: General. Kennedy Frausto M.D. PAULINO/yani (Please copy [facility] provider when applicable) Job #[id number] JOSE FRANCISCO
== END 2019-01-08 13:00 | disposition home or self-care (01) | DRG 620 ==
LOC: OPSURG 08:11 → SOUTH 12:53
PROVIDERS: ADMIT Nurse Practitioner Family; ATTEND Nurse Practitioner Family
PROC: 0DB64Z3 Excision of Stomach, Percutaneous Endoscopic Approach, Vertical (ICD-10-PCS; principal; 2019-01-04)
PROC: 30233N1 Transfusion of Nonautologous Red Blood Cells into Peripheral Vein, Percutaneous Approach (ICD-10-PCS; 2019-01-05)
DX: E66.01 Morbid (severe) obesity due to excess calories (principal); D68.52 Prothrombin gene mutation; G47.33 Obstructive sleep apnea (adult) (pediatric); I10 Essential (primary) hypertension; E78.5 Hyperlipidemia, unspecified; J45.909 Unspecified asthma, uncomplicated; F41.9 Anxiety disorder, unspecified; E11.65 Type 2 diabetes mellitus with hyperglycemia; F32.9 Major depressive disorder, single episode, unspecified; G89.29 Other chronic pain; M54.9 Dorsalgia, unspecified; I95.9 Hypotension, unspecified; R55 Syncope and collapse; M19.90 Unspecified osteoarthritis, unspecified site; D64.9 Anemia, unspecified; M79.7 Fibromyalgia; E03.9 Hypothyroidism, unspecified; Z79.01 Long term (current) use of anticoagulants; Z86.711 Personal history of pulmonary embolism; Z90.49 Acquired absence of other specified parts of digestive tract; Z88.5 Allergy status to narcotic agent; Z88.2 Allergy status to sulfonamides; Z79.890 Hormone replacement therapy; Z79.899 Other long term (current) drug therapy; Z79.84 Long term (current) use of oral hypoglycemic drugs; Z68.44 Body mass index [BMI] 60.0-69.9, adult
CPT/HCPCS: 36415; 80053; 81002; 85014; 85018; 85025; 85610; 85730; 86885; 86900; 86901; 86920; 88305; 93005; 97116; 97530; A9270; J0690; J1815; J2001; J2060; J2250; J2270; J2405; J2550; J2704; J3010; J3490; J7030; J7060; J7120; 43235; 43775; 99221; 99231; 99238; P9040; S1016

== ENCOUNTER 2019-01-11 20:15 | Inpatient (IN) | payer MEDICARE, OTHER ==
[2019-01-11] MEDS ORDERED: IPRATROPIUM/ALBUTEROL SULFATE 3 ML AMPUL.NEB NEB PRN (20:44)
--- NOTE | 2019-01-11 21:03 | History and Physical Report ---
History of Present Illnes - History of Present Illness Reason for Visit: Umbilical Abscess History of Present Illness: 49 year female presents to hospital via ambulance from [facility]- per Dr. Quick patient has an umbilical abscess that has been draining started this morning; patient had a low grade temp of 99.1, HR 105 and stable. She had a WBC of 27.7 with a negative Lactate. Hemoglobin was up at 8.0 with HCT of 25. Abdominal CT was completed with a complex appearing collection in the area of concern measuring 5.4x 1.1x 3.4 cm suggestive of abscess (umbilical). Patient was started on Zosyn prior to transfer from [place] to [place]. Per Dr. Quick patient was going to be discharged to home but wanted to come here. Upon transfer to [place] patient was said to have a BP of 60/30 and they gave 500 cc bolus (this was not told in report)- patient is alert and oriented upon arrival- stood from cot and ambulated to the bed. Patient was positioned in bed and resting comfortably-mom at bedside. We will repeat labs in the morning. - Past Medical History Cardiac: HTN, Hyperlipidemia Pulmonary: Asthma, Pulmonary embolus, Sleep Apnea (ORAL APPLIANCE) Heme/Onc: Other (Prothrombin mutation, Protein deficiency) Psych: Anxiety, Depression Musculoskeletal: Chronic low back pain, Osteoarthritis Rheumatologic: Fibromyalgia Endocrine: Diabetes, Hypothyroidism, obesity Grav: 0 - Past Surgical History Past Surgical History: Cholecystectomy (1997), Other (D&C 2007) - Past Family History Mother Family History: Hypertension Father Family History: Hypertension - Past Social History Smoke: No Alcohol: Rare (1-2/month) Drugs: None Lives: With Family Domestic Violence: Negative - Health Maintenance Health Maintenance: Cholesterol, Mammogram Influenza Vaccine: Current for this Influenza Season Pneumonia Vaccine: No Resuscitation Status: Resusciation Status Resuscitation Status Full Code Review of Systems - Review of Systems Constitutional: Fever, Chills Eyes: negative: conjunctivae inflammation ENT: negative: Nose Congestion Respiratory: SOB with Excertion. negative: Cough Cardiovascular: negative: Chest Pain Gastrointestinal: Nausea. negative: Vomiting, Abdominal Pain Genitourinary: negative: Dysuria Musculoskeletal: Back Pain (chronic) Skin: Other (Umbilical abscess) Neurological: Weakness - Medications/Allergies Allergies/Adverse Reactions: Allergies Allergy/AdvReac Type Severity Reaction Status Date / Time codeine Allergy Verified 01/04/19 13:02 Sulfa (Sulfonamide Allergy Verified 01/04/19 13:02 Antibiotics) Current Inpatient Medications: Current Inpatient Medications Albuterol/Ipratropium (Duoneb) 3 ml NEB Q4 PRN PRN Reason: Wheezing Stop: 02/10/19 20:43 Exam - Exam Vital Signs: Vital Signs (72 hours) 01/11/19 20:43 Pulse Rate 100 H General: Alert, Oriented to Person, Oriented to Place, Oriented to Time, Cooperative, Mild distress, Morbidly Obese HEENT: Atraumatic, PERRLA, Mouth Mucous membr. moist/[place], Nose Mucous membr. moist/[place] Neck: Normal Range of Motion Carotids: No bruit Lungs: Clear to auscultation, Normal air movement, Speaks full Sentences Cardiovascular: Regular rate, Normal S1, Normal S2 Peripheral Edema: None Peripheral Pulses: 2+ Abdomen: Normal bowel sounds, Soft Integumentary: Warm, Dry, Pale, Other (brown drainage from the umbilicus) Extremities: No edema, Normal pulses, No tenderness/swelling Neurological: Normal speech, Strength Equal Bilat, Generalized Weakness Psych/Mental Status: Mental status NL, Mood NL, Appropriate Affect, Intact Judgment Assessment/Plan - Assessment/Plan (1) Abscess, umbilical Status: Acute Assessment: brown drainage from umbilicus Plan: Wound culture collected from umbilicus (2) Anemia Status: Acute Qualifiers: Other causes of anemia: other cause, not classified Assessment: patient hemoglobin from [facility] up to 8.0 Plan: Will recheck labs in the morning (3) History of pulmonary embolus (PE) Status: Acute Assessment: No sx's of PE; no SOA, no tachycardia Plan: Patient on Lovenox (4) Obstructive sleep apnea Status: Acute Assessment: Stable Plan: Patient uses sleep appliance (5) Prothrombin mutation Status: Acute Plan: Patient on Lovenox (6) S/P laparoscopic sleeve gastrectomy Status: Acute Assessment: Incisions intact without redness, erythema, or drainage Plan: Will keep patient on full liquids, SCDs while in bed, incentive spirometer VTE Assessment - RISK FACTOR SCORE VTE RISK FACTOR SCORES: AGE 40-60 YEARS, ACUTE INFECTION OTHER THEN SEPSIS, OBESITY - RISK VTE HIGH RISK: SCORE OF 3-4 (RISK PROXIMAL DVT 4-8%) PROPHYLAXIS NEEDED (will keep patient on lovenox, use SCDs in bed, incentive spirometer)
[2019-01-11] MEDS ORDERED: PROMETHAZINE HCL 25 MG TABLET PO PRN (21:05)
[2019-01-11] MEDS ORDERED: VANCOMYCIN HCL 2 GM in 0.9 % SODIUM CHLORIDE 500 ML IV ONE (21:08)
[2019-01-11] MEDS ORDERED: VANCOMYCIN PHARMACY TO DOSE IV SCH (22:00)
[2019-01-11 22:58] VITALS: BMI 60.3
[2019-01-11] MEDS ORDERED: 0.9 % SODIUM CHLORIDE 250 ML IV ONE (23:13)
[2019-01-11] MEDS ORDERED: VANCOMYCIN HCL 1 GM VIAL IV ONE (23:13)
[2019-01-11] MEDS: INSULIN REGULAR, HUMAN 100 UNIT/ML 10ML VIAL SQ SCH (23:18)
[2019-01-11] MEDS: SODIUM CHLORIDE 0.9 % (FLUSH) 10 ML DISP.SYRIN IV SCH (23:21)
[2019-01-12] MEDS ORDERED: 0.9 % SODIUM CHLORIDE 1,000 ML IV ONE (00:12)
[2019-01-12] MEDS: 0.9 % SODIUM CHLORIDE 1,000 ML IV SCH ×3 (01:51→19:22)
[2019-01-12] MEDS: PIPERACILLIN SODIUM/TAZOBACTAM 3.375 GM in 0.9 % SODIUM CHLORIDE 100 ML IV SCH ×4 (02:34→20:15)
[2019-01-12] MEDS ORDERED: VANCOMYCIN HCL 1 GM in 0.9 % SODIUM CHLORIDE 250 ML IV SCH (05:00)
[2019-01-12] MEDS: LEVOTHYROXINE SODIUM 50 MCG TABLET PO SCH (06:44)
[2019-01-12] MEDS: PANTOPRAZOLE SODIUM 40 MG in SODIUM CHLORIDE 0.9 % (FLUSH) 10 ML IVP SCH ×2 (06:44→16:55)
[2019-01-12] MEDS: INSULIN REGULAR, HUMAN 100 UNIT/ML 10ML VIAL SQ SCH ×4 (07:45→20:25)
[2019-01-12 07:54] LABS: BASOPHILS % 1.2 % (0.0-1.5); NEUTROPHILS # 19.8 # k/uL (1.4-7.7); SEGMENTED NEUTROPHILS % 77 % (39-79)
[2019-01-12 07:55] LABS: ANISOCYTOSIS 1+ (NEGATIVE)
[2019-01-12] MEDS: TIZANIDINE HCL 4 MG TABLET PO SCH (08:31)
[2019-01-12] MEDS: ENOXAPARIN SODIUM 80 MG/0.8 ML DISP.SYRIN SQ SCH ×2 (08:31→20:16)
[2019-01-12] MEDS: MORPHINE SULFATE PO SCH ×2 (08:43→20:25)
[2019-01-12] MEDS: NALTREXONE PO SCH ×2 (08:43→20:25)
[2019-01-12] MEDS: VENLAFAXINE HCL 150 MG CAP.ER.24H PO SCH (09:00)
[2019-01-12] MEDS ORDERED: OXYBUTYNIN CHLORIDE 5 MG TABLET PO SCH (09:00)
[2019-01-12] MEDS: GABAPENTIN 300 MG CAPSULE PO SCH ×2 (10:06→14:30)
[2019-01-12] MEDS: MULTIVITAMIN 1 EACH TABLET PO SCH (10:06)
[2019-01-12] MEDS: SODIUM CHLORIDE 0.9 % (FLUSH) 10 ML DISP.SYRIN IV SCH ×2 (10:10→20:25)
[2019-01-12] MEDS ORDERED: 0.9 % SODIUM CHLORIDE 250 ML IV ONE (10:12)
[2019-01-12] MEDS ORDERED: HYDROcodone-ACETAMIN 7.5-325/15ML SOLN UD CUP PO PRN (13:48)
--- NOTE | 2019-01-12 14:11 | Diagnostic Imaging Report ---
PATIENT MR#: [id number] PATIENT PATIENT NAME: NEVA GOLDSTEIN DATE OF : 1970 REFERRING PHYSICIAN: Harper Alvarez EXAM DATE: 01/12/2019 ACCESSION NUMBER: [id number] EXAM DESCRIPTION: CHEST 2VIEW HISTORY: SOA, S/P GASTRIC SLEEVE SURGERY X1 WEEK AGO. COMPARISON: None provided. CHEST RADIOGRAPH, FRONTAL AND LATERAL: Upper mediastinum: Not widened. Heart: No cardiomegaly. Lungs: There is moderate atelectasis of the left lower lobe, with elevation of left hemidiaphragm and small-moderate left pleural effusion. No lobar infiltrate, pulmonary edema, or pneumothorax. Skeleton: No acute findings. IMPRESSION: Moderate atelectasis of the left lower lobe, with elevation of left hemidiaphragm and sma ll-moderate left pleural effusion, which may be sympathetic status post recent abdominal surgery. An element of left l ower lobe infiltrate is not excluded in the presence of atelectasis. Recommend follow-up imaging if symptoms pe rsist or worsen. Read by: Dr. Fuad Ly Transcribed by: Fuad Ly Transcribed Date: 01/12/2019 2:11:06 PM Electronically signed by: Dr. Fuad Ly Date signed: 01/12/2019 2:11:06 PM
--- NOTE | 2019-01-12 14:18 | Diagnostic Imaging Report ---
PATIENT MR#: [id number] PATIENT PATIENT NAME: NEVA GOLDSTEIN DATE OF : 1970 REFERRING PHYSICIAN: Harper Alvarez EXAM DATE: 01/12/2019 ACCESSION NUMBER: [id number] EXAM DESCRIPTION: US TRANSABDOMINAL PELVIS CLINICAL HISTORY: S/P GASTRIC SLEEVE SURGERY X1 WEEK AGO. HASN'T URINATED IN 12 HRS. TECHNIQUE: Ultrasound of the bladder was performed. BLADDER ULTRASOUND: Moderately distended. Bilateral ureteral jets were not visualized by the medical technologist prn. Prevoid volume: 780 mL IMPRESSION: Moderate urinary bladder distention without visualization of ureteral jets, which may rep resent an element of urinary retention. Read by: Dr. Fuad Ly Transcribed by: Fuad Ly Transcribed Date: 01/12/2019 2:18:08 PM Electronically signed by: Dr. Fuad Ly Date signed: 01/12/2019 2:18:08 PM
[2019-01-12] MEDS ORDERED: GABAPENTIN 300 MG CAPSULE PO SCH (21:00)
[2019-01-12] MEDS ORDERED: ATORVASTATIN CALCIUM 10 MG TABLET PO SCH (21:00)
[2019-01-13] MEDS: PIPERACILLIN SODIUM/TAZOBACTAM 3.375 GM in 0.9 % SODIUM CHLORIDE 100 ML IV SCH ×2 (03:42→08:28)
[2019-01-13] MEDS: PANTOPRAZOLE SODIUM 40 MG in SODIUM CHLORIDE 0.9 % (FLUSH) 10 ML IVP SCH (06:02)
[2019-01-13] MEDS: LEVOTHYROXINE SODIUM 50 MCG TABLET PO SCH (06:02)
[2019-01-13] MEDS ORDERED: metroNIDAZOLE/SODIUM CHLORIDE 500 MG/100 ML BAG IV SCH (06:30)
--- NOTE | 2019-01-13 06:46 | Inpatient Progress Note ---
Subjective - Required Recertification Statement I anticipate X number of days because-include discharge plan: 0 - Review of Systems Events since last encounter: Patient received 1 unit of blood yesterday; hgb 7.3 at 17:00 last night; nursing stated that patient had an excessive amount of brown discharge from the umbilicus. We will start patient on Flagyl 500mg IV Q 8 hours today. We will get her started on IVF today d/t hypotension and acute renal failure- will monitor closely for fluid overload. 12:30- patient having large amount of brown drainage from umbilicus upon standing; now having large amount of bloody discharge; soiled 2 abdominal dressings; Q-tip placed in umbilicus and there is tunneling to the right abdomen. Lovenox was dc'd this morning due to low hemoglobin. 12:[address] Iyer and they will accept patient to rescan abdomen and evaluate abdominal abscess. Patient had received 1 units of PRBCs yesterday. Patient is alert and oriented x 4; will be evaluated at [place] for umbilical abscess. 13:00 Received CBC now and HGB hanging at 7.2 (had blood loss from umbilicus) 2nd unit of PRBC started. Lovenox was held today (she was getting Lovenox BID at 160mg per Surgeon order d/t prothrombin mutation)- patient was transitioned from warfarin to Lovenox on 01/01/19 prior to Laparoscopic vertical sleeve gastrectomy on 01/04/19. Patient has had no nausea or vomiting; she has been drinking water and consuming Premier protein shakes (following bariatric diet). 13:20 Patient is alert and oriented but thought process appears slow (unusual for patient)- pupils are pinpoint; looked through belongings; did not find anything unusual; went ahead and gave narcan and patient perked up and woke up; asked if mom gave anything and she said no. Objective - Exam Vitals and I&O: Vital Signs Temp 97.3 F L 01/13/19 05:41 Pulse 94 H 01/13/19 06:00 Resp 14 01/13/19 06:00 BP 83/52 01/13/19 05:41 Pulse Ox 98 01/13/19 06:00 Intake & Output 01/12/19 01/12/19 01/13/19 11:59 23:59 11:59 Intake Total 825 1020 460 Output Total 850 150 Balance 825 170 310 Intake: IV 225 100 100 Right Antecubital 225 100 100 Oral 600 920 360 Output: Urine 850 150 2-way Urethral 425 Other: Voiding Method Toilet Indwelling Catheter Indwelling Catheter # Voids 0 # Bowel Movements 0 - Results Results: Laboratory Results WBC 27.50 K/ul (4.00-12.00) H 01/12/19 06:42 RBC 2.58 M/ul (3.90-5.20) L 01/12/19 06:42 Hgb 7.3 g/dL (11.5-16.0) L 01/12/19 17:00 Hct 22.5 % (34.5-46.5) L 01/12/19 17:00 MCV 85.0 fl (80.0-100.0) 01/12/19 06:42 MCH 27.3 pg (28.0-34.0) L 01/12/19 06:42 MCHC 32.2 g/dL (30.0-36.0) 01/12/19 06:42 RDW 14.5 % (11.3-14.3) H 01/12/19 06:42 Plt Count 610 K/mm3 (130-400) H 01/12/19 06:42 Neut % (Auto) 72.1 % (39.0-79.0) 01/12/19 06:42 Lymph % (Auto) 7.4 % (16.0-50.0) L 01/12/19 06:42 [place] % (Auto) 17.5 % (0.0-11.0) H 01/12/19 06:42 Eos % (Auto) 1.8 % (0.0-6.8) 01/12/19 06:42 Baso % (Auto) 1.2 % (0.0-1.5) 01/12/19 06:42 Neut # (Auto) 19.8 # k/uL (1.4-7.7) H 01/12/19 06:42 Lymph # (Auto) 2.0 # k/uL (0.6-4.0) 01/12/19 06:42 [place] # (Auto) 4.8 # k/uL (0.0-0.9) H 01/12/19 06:42 Eos # (Auto) 0.5 # k/uL (0.0-0.6) 01/12/19 06:42 Baso # (Auto) 0.3 # k/uL (0.0-0.5) 01/12/19 06:42 Seg Neutrophils % 77 % (39-79) 01/12/19 06:42 Band Neutrophils % 1 % (0-12) 01/12/19 06:42 Lymphocytes % 6 % (16-50) L 01/12/19 06:42 Monocytes % 12 % (0-11) H 01/12/19 06:42 Eosinophils % 2 % (0-7) 01/12/19 06:42 Metamyelocytes % 2 % (0-0) H 01/12/19 06:42 Anisocytosis 1+ (NEGATIVE) H 01/12/19 06:42 RBC Morph Comment Abnormal (NORMAL) H 01/12/19 06:42 Sodium 130 mmol/L (137-145) L 01/12/19 17:00 Potassium 4.7 mmol/L (3.5-5.1) 01/12/19 17:00 Chloride 101 mmol/L (98-107) 01/12/19 17:00 Carbon Dioxide 16 mmol/L (22-30) L 01/12/19 17:00 Anion Gap 17.7 01/12/19 17:00 BUN 51 mg/dL (7-17) H 01/12/19 17:00 Creatinine 4.06 mg/dL (0.52-1.04) H 01/12/19 17:00 Estimated Creat Clear 54 01/12/19 17:00 Est GFR ( Amer) 15 (60-) L 01/12/19 17:00 Est GFR (Non-Af Amer) 12 (60-) L 01/12/19 17:00 Glucose 132 mg/dL (74-106) H 01/12/19 17:00 Calcium 7.8 mg/dL (8.4-10.2) L 01/12/19 17:00 Total Bilirubin 1.9 mg/dL (0.2-1.3) H 01/12/19 06:42 AST 59 U/L (15-46) H 01/12/19 06:42 ALT 48 U/L (0-35) H 01/12/19 06:42 Alkaline Phosphatase 280 U/L (38-126) H 01/12/19 06:42 Total Protein 5.8 g/dL (6.3-8.2) L 01/12/19 06:42 Albumin 2.7 g/dL (3.5-5.0) L 01/12/19 06:42 Assessment/Plan - Assessment/Plan (1) Abscess, umbilical Status: Acute Plan: Working on transferring patient- SEE DISCHARGE
[2019-01-13] MEDS ORDERED: 0.9 % SODIUM CHLORIDE 500 ML IV ONE (07:21)
--- NOTE | 2019-01-13 07:27 | Inpatient Progress Note ---
Subjective - Required Recertification Statement I anticipate X number of days because-include discharge plan: unknown - Review of Systems Events since last encounter: Patient sitting up in bed this afternoon; family at bedside; patient states that she is feeling good; she got up to get out of bed this morning and nursing reported a large amount of brown drainage with stringy white substance from belly button; potential abscess rupture. Patient denies any abdominal pain or discomfort; she is receiving 1 unit of PRBCs d/t Hemoglobin of 7.0 this morning. It was 8.0 in [place] prior to IVF's. Patient had not been able to void > 12 hours; ultrasound for bladder volume completed with >700 cc in; willis catheter was placed with 500cc out. Will hold Oxybutin and remove catheter tomorrow. We will monitor labs closely due to leukocytosis, anemia, and renal failure. Overall, patient states that she feels much better; just feels tired. She has been up ambulating, using incentive spirometer frequently, and wearing SCDs in bed. We will hold lovenox for 2 days and monitor closely for signs of DVT. Patient c/o chronic back pain- added Lynch liquid which has helped with discomfort. General: Fatigue HEENT: Denies: Dysphasia Pulmonary: Denies: Dyspnea Cardiovascular: Denies: Chest Pain, Light Headedness Gastrointestinal: Other (abdominal abscess expelled). Denies: Nausea, Vomiting, Abdominal Pain Genitourinary: Retention (Willis catheter placed) Musculoskeletal: Back Pain (Chronic) Neurological: Weakness Objective - Exam Vitals and I&O: Vital Signs Temp 97.3 F L 01/13/19 05:41 Pulse 94 H 01/13/19 06:00 Resp 14 01/13/19 06:00 BP 83/52 01/13/19 05:41 Pulse Ox 98 01/13/19 06:00 Intake & Output 01/12/19 01/12/19 01/13/19 11:59 23:59 11:59 Intake Total 825 1020 460 Output Total 850 150 Balance 825 170 310 Intake: IV 225 100 100 Right Antecubital 225 100 100 Oral 600 920 360 Output: Urine 850 150 2-way Urethral 425 Other: Voiding Method Toilet Indwelling Catheter Indwelling Catheter # Voids 0 # Bowel Movements 0 General: Alert, Oriented to Person, Oriented to Place, Oriented to Time, Cooperative, No acute distress, Morbidly Obese HEENT: Atraumatic, PERRLA, Mouth Mucous membr. moist/[place], Nose Mucous membr. moist/[place] Neck: Supple, No JVD, +2 carotid pulse wo bruit Lungs: Clear to auscultation, Normal air movement, Speaks full Sentences Cardiovascular: Regular rate, Normal S1, Normal S2 Abdomen: Normal bowel sounds, Soft, No tenderness Extremities: No edema, Normal pulses, No tenderness/swelling Skin: Warm, Dry, Pale, Other (incisions x 5 from LSG are intact without redness/erythema/drainage) Neurological: Normal speech, Strength Equal Bilat, Sensation intact Psych/Mental Status: Mental status NL, Mood NL, Appropriate Affect, Intact Judgment - Results Results: Laboratory Results WBC 27.50 K/ul (4.00-12.00) H 01/12/19 06:42 RBC 2.58 M/ul (3.90-5.20) L 01/12/19 06:42 Hgb 7.3 g/dL (11.5-16.0) L 01/12/19 17:00 Hct 22.5 % (34.5-46.5) L 01/12/19 17:00 MCV 85.0 fl (80.0-100.0) 01/12/19 06:42 MCH 27.3 pg (28.0-34.0) L 01/12/19 06:42 MCHC 32.2 g/dL (30.0-36.0) 01/12/19 06:42 RDW 14.5 % (11.3-14.3) H 01/12/19 06:42 Plt Count 610 K/mm3 (130-400) H 01/12/19 06:42 Neut % (Auto) 72.1 % (39.0-79.0) 01/12/19 06:42 Lymph % (Auto) 7.4 % (16.0-50.0) L 01/12/19 06:42 Yancey % (Auto) 17.5 % (0.0-11.0) H 01/12/19 06:42 Eos % (Auto) 1.8 % (0.0-6.8) 01/12/19 06:42 Baso % (Auto) 1.2 % (0.0-1.5) 01/12/19 06:42 Neut # (Auto) 19.8 # k/uL (1.4-7.7) H 01/12/19 06:42 Lymph # (Auto) 2.0 # k/uL (0.6-4.0) 01/12/19 06:42 Yancey # (Auto) 4.8 # k/uL (0.0-0.9) H 01/12/19 06:42 Eos # (Auto) 0.5 # k/uL (0.0-0.6) 01/12/19 06:42 Baso # (Auto) 0.3 # k/uL (0.0-0.5) 01/12/19 06:42 Seg Neutrophils % 77 % (39-79) 01/12/19 06:42 Band Neutrophils % 1 % (0-12) 01/12/19 06:42 Lymphocytes % 6 % (16-50) L 01/12/19 06:42 Monocytes % 12 % (0-11) H 01/12/19 06:42 Eosinophils % 2 % (0-7) 01/12/19 06:42 Metamyelocytes % 2 % (0-0) H 01/12/19 06:42 Anisocytosis 1+ (NEGATIVE) H 01/12/19 06:42 RBC Morph Comment Abnormal (NORMAL) H 01/12/19 06:42 Sodium 130 mmol/L (137-145) L 01/12/19 17:00 Potassium 4.7 mmol/L (3.5-5.1) 01/12/19 17:00 Chloride 101 mmol/L (98-107) 01/12/19 17:00 Carbon Dioxide 16 mmol/L (22-30) L 01/12/19 17:00 Anion Gap 17.7 01/12/19 17:00 BUN 51 mg/dL (7-17) H 01/12/19 17:00 Creatinine 4.06 mg/dL (0.52-1.04) H 01/12/19 17:00 Estimated Creat Clear 54 01/12/19 17:00 Est GFR ( Amer) 15 (60-) L 01/12/19 17:00 Est GFR (Non-Af Amer) 12 (60-) L 01/12/19 17:00 Glucose 132 mg/dL (74-106) H 01/12/19 17:00 Calcium 7.8 mg/dL (8.4-10.2) L 01/12/19 17:00 Total Bilirubin 1.9 mg/dL (0.2-1.3) H 01/12/19 06:42 AST 59 U/L (15-46) H 01/12/19 06:42 ALT 48 U/L (0-35) H 01/12/19 06:42 Alkaline Phosphatase 280 U/L (38-126) H 01/12/19 06:42 Total Protein 5.8 g/dL (6.3-8.2) L 01/12/19 06:42 Albumin 2.7 g/dL (3.5-5.0) L 01/12/19 06:42 Assessment/Plan - Assessment/Plan (1) Anemia Status: Acute Qualifiers: Other causes of anemia: other cause, not classified Assessment: Patient has been anemic s/p Laparoscopic vertical sleeve gastrectomy on 01/04/19; she was transitioned from coumadin to Lovenox; she received 2 units of PRBCs during 1st visit and has received another unit this morning. Plan: Will recheck Hemoglobin regularly (2) Hypertension Status: Acute Qualifiers: Hypertension type: essential hypertension Qualified Code(s): I10 - Essential (primary) hypertension Assessment: Blood pressures have been low; patient not symptomatic Plan: Will hold BP meds at this time (3) Morbid obesity due to excess calories Status: Acute Plan: We will keep patient on bariatric diet s/p LSG with full liquids; particularly Premier Protein shakes TID (4) Obstructive sleep apnea Status: Acute Assessment: Stable Plan: Uses device (5) Prothrombin mutation Status: Acute Assessment: No symptoms of DVT, PE Plan: We will hold Lovenox starting tomorrow for 2 days (6) S/P laparoscopic sleeve gastrectomy Status: Acute Assessment: Incisions are without redness, erythema, or drainage; skin adhesive in intact Plan: Will continue to monitor diet, have patient ambulating every hour with incentive spirometry use, SCDs while in bed (7) Type 2 diabetes mellitus Status: Acute Qualifiers: Diabetes mellitus buttermaker continuous churn insulin use: without buttermaker continuous churn use Diabetes mellitus complication status: with hyperglycemia Qualified Code(s): E11.65 - Type 2 diabetes mellitus with hyperglycemia Assessment: Blood sugars have been within normal limits; has not required insulin Plan: Will continue to monitor closely (8) Urinary retention Status: Acute Assessment: patient had not voided for 12 hours; ultrasound showed 700 Plan: Willis catheter placed
[2019-01-13 08:06] LABS: BASOPHILS % 1.2 % (0.0-1.5)
[2019-01-13 08:07] LABS: NEUTROPHILS # 20.6 # k/uL (1.4-7.7)
[2019-01-13] MEDS: INSULIN REGULAR, HUMAN 100 UNIT/ML 10ML VIAL SQ SCH ×2 (08:25→11:28)
[2019-01-13] MEDS: VENLAFAXINE HCL 150 MG CAP.ER.24H PO SCH (09:18)
[2019-01-13] MEDS: GABAPENTIN 300 MG CAPSULE PO SCH (09:18)
[2019-01-13] MEDS: NALTREXONE PO SCH (09:18)
[2019-01-13] MEDS: MORPHINE SULFATE PO SCH (09:18)
[2019-01-13] MEDS: TIZANIDINE HCL 4 MG TABLET PO SCH (09:18)
[2019-01-13] MEDS ORDERED: VANCOMYCIN HCL 1 GM in 0.9 % SODIUM CHLORIDE 250 ML IV SCH (10:00)
[2019-01-13] MEDS: MULTIVITAMIN 1 EACH TABLET PO SCH (10:00)
[2019-01-13] MEDS: SODIUM CHLORIDE 0.9 % (FLUSH) 10 ML DISP.SYRIN IV SCH (10:01)
[2019-01-13 13:13] LABS: BASOPHILS % 1.1 % (0.0-1.5); NEUTROPHILS # 19.1 # k/uL (1.4-7.7)
[2019-01-13 13:21] VITALS: BP 106/38
[2019-01-13] MEDS ORDERED: NALOXONE HCL 2 MG/2 ML IVP ONE (13:25)
[2019-01-13] MEDS ORDERED: NALOXONE HCL 2 MG/2 ML ONE (13:28)
--- NOTE | 2019-01-13 14:51 | Discharge Summary ---
Discharge Summary - Discharge [facility] Admission Date: 12/11/18 Discharge Date: 01/13/19 Discharge To: Other ([place]) History of Present Illness: 49 year female presents to hospital via ambulance from [facility]- per Dr. Quick patient has an umbilical abscess that has been draining started this morning; patient had a low grade temp of 99.1, HR 105 and stable. She had a WBC of 27.7 with a negative Lactate. Hemoglobin was up at 8.0 with HCT of 25. Abdominal CT was completed with a complex appearing collection in the area of concern measuring 5.4x 1.1x 3.4 cm suggestive of abscess (umbilical). Patient was started on Zosyn prior to transfer from [place] to [place]. Per Dr. Quick patient was going to be discharged to home but wanted to come here. Upon transfer to [place] patient was said to have a BP of 60/30 and they gave 500 cc bolus (this was not told in report)- patient is alert and oriented upon arrival- stood from cot and ambulated to the bed. Patient was positioned in bed and resting comfortably-mom at bedside. We will repeat labs in the morning. Condition at Discharge: Guarded Home Medications: Ambulatory Orders Medication Instructions Recorded Enoxaparin Sodium [Lovenox] 150 mg SQ BID 01/04/19 Gabapentin [Neurontin] 1,200 mg PO HS 01/04/19 Gabapentin [Neurontin] 600 mg PO BID 01/04/19 Levothyroxine Sodium [Synthroid] 75 mcg PO 0700 01/04/19 Lisinopril [Prinivil] 10 mg PO QD 01/04/19 Lovastatin 20 mg PO DAILY 01/04/19 Metformin HCl 1,000 mg PO BID 01/04/19 Morphine Sulfate/Naltrexone 1 each PO BID 01/04/19 [Embeda ER 80-3.2 mg Capsule] Multivit-Min/Iron/Folic/Lutein 1 tab PO DAILY 01/04/19 [Multivitamin Women 50 Plus Tab] Omeprazole 20 mg PO DAILY 01/04/19 Oxybutynin Chloride [Ditropan] 10 mg PO DAILY 01/04/19 Promethazine HCl [Phenergan] 25 mg PO Q6 PRN 01/04/19 Tizanidine HCl 4 mg PO DAILY 01/04/19 Venlafaxine HCl [Effexor] 150 mg PO DAILY 01/04/19 Warfarin Sodium 0.5 mg PO [id number] 01/04/19 Warfarin Sodium 10 mg PO [id number] 01/04/19 Warfarin Sodium 10 mg PO [id number] 01/04/19 Warfarin Sodium 12 mg PO [id number] 01/04/19 Consultations this Visit: None Procedures this Visit: None Allergies/Adverse Reactions: Allergies Allergy/AdvReac Type Severity Reaction Status Date / Time codeine Allergy Verified 01/04/19 13:02 Sulfa (Sulfonamide Allergy Verified 01/04/19 13:02 Antibiotics) Discharge Summary: Patient received 1 unit of blood yesterday; hgb 7.3 at 17:00 last night; nursing stated that patient had an excessive amount of brown discharge from the umbilicus. We will start patient on Flagyl 500mg IV Q 8 hours today. We will get her started on IVF today d/t hypotension and acute renal failure- will monitor closely for fluid overload. 12:30- patient having large amount of brown drainage from umbilicus upon standing; now having large amount of bloody discharge; soiled 2 abdominal dressings; Q-tip placed in umbilicus and there is tunneling to the right abdomen. Lovenox was dc'd this morning due to low hemoglobin. 12:[address] Iyer and they will accept patient to rescan abdomen and evaluate abdominal abscess. Patient had received 1 units of PRBCs yesterday. Patient is alert and oriented x 4; will be evaluated at [place] for umbilical abscess. 13:00 Received CBC now and HGB hanging at 7.2 (had blood loss from umbilicus) 2nd unit of PRBC started. Lovenox was held today (she was getting Lovenox BID at 160mg per Surgeon order d/t prothrombin mutation)- patient was transitioned from warfarin to Lovenox on 01/01/19 prior to Laparoscopic vertical sleeve gastrectomy on 01/04/19. Patient has had no nausea or vomiting; she has been drinking water and consuming Premier protein shakes (following bariatric diet). 13:20 Patient is alert and oriented but thought process appears slow (unusual for patient)- pupils are pinpoint; looked through belongings; did not find anything unusual; went ahead and gave narcan and patient perked up and woke up; asked if mom gave anything and she said no. EMS called later and stated that patient was looking for pills that mom gave her. Hospital Course: IV Zosyn, Vanc, and Flagyl, IV fluids, PRBC's x2 - Final Diagnosis (1) Abscess, umbilical Problems: Will transfer to [place] for further evaluation Right or Left: Right (2) Anemia Problems: patient received another unit of PRBC prior to transfer Right or Left: Right
== END 2019-01-13 13:45 | disposition short-term general hospital (02) | DRG 603 ==
LOC: SOUTH 20:15
PROVIDERS: ADMIT Nurse Practitioner Family; ATTEND Nurse Practitioner Family
PROC: 30233N1 Transfusion of Nonautologous Red Blood Cells into Peripheral Vein, Percutaneous Approach (ICD-10-PCS; principal; 2019-01-13)
DX: L02.216 Cutaneous abscess of umbilicus (principal); D68.52 Prothrombin gene mutation; Z68.44 Body mass index [BMI] 60.0-69.9, adult; N17.9 Acute kidney failure, unspecified; I10 Essential (primary) hypertension; E78.5 Hyperlipidemia, unspecified; J45.909 Unspecified asthma, uncomplicated; F41.9 Anxiety disorder, unspecified; F32.9 Major depressive disorder, single episode, unspecified; G89.29 Other chronic pain; M54.5 Low back pain; M19.90 Unspecified osteoarthritis, unspecified site; M79.7 Fibromyalgia; E03.9 Hypothyroidism, unspecified; D64.9 Anemia, unspecified; E66.01 Morbid (severe) obesity due to excess calories; G47.33 Obstructive sleep apnea (adult) (pediatric); E11.65 Type 2 diabetes mellitus with hyperglycemia; I95.9 Hypotension, unspecified; Z86.711 Personal history of pulmonary embolism; Z90.49 Acquired absence of other specified parts of digestive tract; Z88.5 Allergy status to narcotic agent; Z88.2 Allergy status to sulfonamides; Z90.3 Acquired absence of stomach [part of]; Z79.01 Long term (current) use of anticoagulants; Z79.899 Other long term (current) drug therapy; Z79.890 Hormone replacement therapy; Z79.84 Long term (current) use of oral hypoglycemic drugs
CPT/HCPCS: 36415; 71046; 76856; 80048; 80053; 83605; 84145; 85014; 85018; 85025; 86885; 86900; 86901; 86920; 87070; 87186; 97116; A9270; J1650; J1815; J2310; J2543; J3370; J3490; J7030; J7050; J7060; 99221; 99232; 99238; P9040; S1016